=== PATIENT | male | born 1955 ===

== ENCOUNTER 2017-07-23 09:54 | Emergency (ER) | payer MEDICAID, OTHER ==
[2017-07-23 10:14] VITALS: TEMP 97.5
--- NOTE | 2017-07-23 10:37 | C.PDOC ---
History Of Present Illness 61 year old male presents to the ED with complaints of a burning sensation in both eyes for one week. Patient has glasses but did not bring them to the ED today. He also notes a right knee pain for nine months, however his main concern is the burning sensation in his eyes. Patient denies vision loss, exposure to chemicals or eye irritants, or injury. Time Seen by Provider: 07/23/17 10:25 Chief Complaint (Nursing): Lower Extremity Problem/Injury History Per: Patient History/Exam Limitations: no limitations Onset/Duration Of Symptoms: Days (1 week of eye burning sensation ), Persistent (9 months of right knee pain ) Current Symptoms Are (Timing): Still Present Recent travel outside of the [place]: No Past Medical History Reviewed: Historical Data, Nursing Documentation, Vital Signs Vital Signs: Last Vital Signs Temp 97.5 F L 07/23/17 10:10 Pulse 71 07/23/17 11:23 Resp 18 07/23/17 11:23 BP 122/72 07/23/17 11:23 Pulse Ox 100 07/23/17 11:54 Family History: States: Other Other Family History: Non-contributory. - Social History Hx Alcohol Use: Yes (hx of alcoholism) Hx Substance Use: No - Immunization History Hx Tetanus Toxoid Vaccination: No Hx Influenza Vaccination: Yes Hx Pneumococcal Vaccination: No Review Of Systems Constitutional: Negative for: Fever Eyes: Positive for: Other (Burning sensation in both eyes ). Negative for: Vision Change, Redness Cardiovascular: Negative for: Chest Pain Respiratory: Negative for: Shortness of Breath Gastrointestinal: Negative for: Nausea, Vomiting Musculoskeletal: Positive for: Leg Pain (right knee pain) Neurological: Negative for: Headache, Dizziness Physical Exam - Physical Exam Appears: Non-toxic, No Acute Distress Skin: Warm, Dry Head: Atraumatic Eye(s): bilateral: Normal Inspection (no conjunctival injection. no drainage.), PERRL, EOMI, Other (Left eye 20/50 Right eye 20/40 and Bilaterally 20/40) Oral Mucosa: Moist Neck: Supple Chest: Symmetrical, No Deformity Extremity: Normal ROM, No Tenderness, No Pedal Edema, No Calf Tenderness, No Deformity, No Swelling, Other (no erythema of the right knee ) Neurological/Psych: Oriented x3, Normal Cranial Nerves, Normal Motor, Normal Sensation ED Course And Treatment O2 Sat by Pulse Oximetry: 100 (room air ) Progress Note: Fluorescein stain was performed showing no corneal abrasions. Patient was given Tetracaine 0.5% Ophth Soln and Ciloxan 0.3% Ophth Soln. Disposition - Disposition Referrals: [facility] [Outside] Disposition: HOME/ ROUTINE Disposition Time: 10:58 Condition: STABLE Additional Instructions: Please follow up with a primary doctor. The clinic number is provided. They can refer you to a specialist if your symptoms persist. You can also try zatidor eye drops which are available [id number] and may help if allergies are contributing to your symptoms. Return to the ER for any worsening symptoms or for any other concerns. Prescriptions: Erythromycin 0.5% [Ilytocin] 3.5 gm OP BID #1 tube Instructions: Eye Pain (ED) Forms: General Discharge Instructions, [facility] (Uzbek) - Clinical Impression Clinical Impression: Pain of both eyes - Scribe Statement The provider has reviewed the documentation as recorded by the Scribe Kamini Cordova All medical record entries made by the Scribe were at my direction and personally dictated by me. I have reviewed the chart and agree that the record accurately reflects my personal performance of the history, physical exam, medical decision making, and the department course for this patient. I have also personally directed, reviewed, and agree with the discharge instructions and disposition.
[2017-07-23] MEDS ORDERED: Tetracaine 0.5% Ophth 2 ML BOTTLE OU ONE (10:43)
[2017-07-23] MEDS ORDERED: Tetracaine 0.5% Ophth (OR ONLY) ONE (10:49)
[2017-07-23] MEDS ORDERED: Erythromycin 0.5% Ophth Oint 1 APPLIC/3.5 G ONE (11:20)
[2017-07-23 11:23] VITALS: BP 122/72; PULSE 71; RESP 18
[2017-07-23 11:54] VITALS: O2SAT 100
[2017-07-23] MEDS ORDERED: Ciprofloxacin 0.3% OPTH SOLN OU SCH (14:00)
== END 2017-07-23 11:24 | disposition home or self-care (01) ==
LOC: C.ER 09:54
DX: H57.13 Ocular pain, bilateral (principal)